=== PATIENT | female | born 1955 | race Caucasian/White ===

== ENCOUNTER 2022-02-02 16:14 | Emergency (ER) | payer MEDICARE, SELFPAY ==
[2022-02-02 16:16] VITALS: BP 131/69; PULSE 81; RESP 17; TEMP 37; O2SAT 98
--- NOTE | 2022-02-02 16:38 | ED.EAR ---
HPI - Ear Problem General Chief complaint: Ear Stated complaint: left ear complaint Time Seen by Provider: 02/02/22 16:31 History of Present Illness HPI Narrative: pt shooting guns today and doign fine then when got in car noticed couldn't hear out of left ear and felt a fluttering in left ear no ringing and wore her normal ear protection says lots of sinus issues lately no preivous issues/f/uri/dental or other c/o Related Data Allergies Allergy/AdvReac Type Severity Reaction Status Date / Time codeine Allergy Mild N/V Unverified 09/17/17 01:16 cortisone Allergy Mild GI UPSET Verified 09/17/17 01:16 hydrocodone Allergy Unknown GI UPSET Verified 09/17/17 01:16 Review of Systems Review of Systems: CONSTITUTIONAL: Denies fever, chills, or sweats. EYES: Denies visual changes, redness, or discharge. ENT: Denies rhinorrhea, congestion, sore throat, or otalgia. left hearing loss/fluttering CARDIOVASCULAR: Denies chest pain, palpitations, or edema. RESPIRATORY: Denies cough or dyspnea. GASTROINTESTINAL: Denies abdominal pain, nausea, vomiting, or diarrhea. GENITOURINARY: Denies dysuria or hematuria. SKIN: Denies rash or itching. MUSCULOSKELETAL: Denies back pain, joint pain, or myalgia. NEUROLOGIC: Denies headache, numbness, or weakness. PSYCHIATRIC: Denies anxiety or depression. PMFSH Social History Social History Smoking status: Never smoker Alcohol intake: current Exam Narrative: APPEARANCE: Well appearing, no pain in distress, well-nourished. Head normocephalic atraumtaic. EYES: PERRLA/EOMI, conjunctivae very clear. NOSE: Normal no drainage EARS:TMS clear Cathleen Sheets, with good light reflex. has fluid behind left tm, right has wax obsuring most of it and left canal dried blood at 3o'clock position pt uses qtips to clean ears but hasnt' today THROAT: Pharynx clear, no exudate. NECK: Supple. No adenopathy, no masses. RESPIRATORY: Airway patent, CARDIOVASCULAR: ABDOMINAL: MUSCULOSKELETAl: Moves all extremities. Strenght/ROM intact, No edema, No calf tenderness. NEURO: Alert. Cranial nerves II through XII intact. Good gait. Good coordination SKIN:: Warm, dry. Normal Color PSYCHIATRIC: Normal affect/mood, normal interaction with parents. Course Vital Signs Vital signs: Vital Signs Temperature 37.0 C 02/02/22 16:16 Pulse Rate 81 02/02/22 16:16 Respiratory Rate 17 02/02/22 16:16 Blood Pressure 131/69 02/02/22 16:16 Pulse Oximetry 98 02/02/22 16:16 Temperature 37.0 C 02/02/22 16:16 Pulse Rate 81 02/02/22 16:16 Respiratory Rate 17 02/02/22 16:16 Blood Pressure 131/69 02/02/22 16:16 Pulse Oximetry 98 02/02/22 16:16 Medical Decision Making Differential Diagnosis Differential Diagnosis: infection, obstruction, secondary to shooting Vital Signs Vital Signs: Vital Signs Temperature 37.0 C 02/02/22 16:16 Pulse Rate 81 02/02/22 16:16 Respiratory Rate 17 02/02/22 16:16 Blood Pressure 131/69 02/02/22 16:16 Pulse Oximetry 98 02/02/22 16:16 Temperature 37.0 C 02/02/22 16:16 Pulse Rate 81 02/02/22 16:16 Respiratory Rate 17 02/02/22 16:16 Blood Pressure 131/69 02/02/22 16:16 Pulse Oximetry 98 02/02/22 16:16 Discharge Plan Discharge Clinical Impression: Otitis externa, Acute hearing loss of left ear Patient Disposition: Home, Self-Care Condition: Stable Instructions: Antibiotic Form Additional Instructions: use claritin, flonase and cortisporin otic and no qtips to ear and no shooting until full hearing evaluation, call your doc for further care friday, return if new issues Prescriptions: New fluticasone propionate [Flonase Allergy Relief] 50 mcg/actuation spray,suspension 2 spray intranasal DAILY Qty: 16 RF: 0 loratadine [Claritin] 10 mg tablet 10 mg PO DAILY PRN (Reason: sinus symptoms) Qty: 30 RF: 0 Cortisporin-TC 3.3-3-10-0.5 mg/mL drops,suspension 4 drp LEFT EAR TID Qty: 10 RF: 0 No Action alendronate 70
== END 2022-02-02 17:15 | disposition home or self-care (01) ==
LOC: ANHED 16:56
PROVIDERS: Emergency Provider Emergency Medicine; PCP Family Medicine Adolescent Medicine
DX: H91.92 Unspecified hearing loss, left ear (principal); H60.92 Unspecified otitis externa, left ear
CPT/HCPCS: 99283

== ENCOUNTER 2023-08-04 14:47 | Emergency (ER) | payer MEDICARE, SELFPAY ==
--- NOTE | ~2023-08-04 | XR_ITS ---
EXAMINATION: XR chest 2V DATE: 08/04/2023 15:18 INDICATION: Cough. TECHNIQUE: Frontal and lateral views of the chest were obtained. COMPARISON: Chest 2 views 08/14/2016 FINDINGS: There is mild scarring at the lung apices. No pleural effusion or pneumothorax. The heart s ize is normal. There is a chronic compression fracture of L1. IMPRESSION: 1. Stable mild scarring at the lung apices. Reviewed, dictated and finalized at location A. SE CONSULTANT
[2023-08-04 15:01] VITALS: BP 137/80; PULSE 133; RESP 18; TEMP 36.8; O2SAT 100
--- NOTE | 2023-08-04 15:04 | ECG_ITS ---
Measurements Intervals [place] Rate: 123 P: 53 [place]: 153 QRS: 42 QRSD: 72 T: 47 QT: 306 QTc: 438 Interpretive Statements SINUS TACHYCARDIA NONSPECIFIC ST & T-WAVE ABNORMALITY- ANT/INF LEADS ABNORMAL ECG NO PREVIOUS ECG AVAILABLE FOR COMPARISON Electronically Signed On 08-04-2023 16:51:15 GROUP HOME PARAPROFESSIONAL by Adilson Maki D.O.
--- NOTE | 2023-08-04 15:08 | ED.GENADULT ---
HPI - General Adult General Chief complaint: Upper Respiratory Infection <Dale Liao PA-C - Last Filed: 08/04/23 15:11> Stated complaint: cough, chills <Dale Liao PA-C - Last Filed: 08/04/23 15:11> Time Seen by Provider: 08/04/23 15:08 <Dale Liao PA-C - Last Filed: 08/04/23 15:11> Source: patient <FLEX Cobian Last Filed: 08/04/23 15:11> Mode of arrival: ambulatory <Dale Liao PA-C - Last Filed: 08/04/23 15:11> Limitations: no limitations <FLEX Cobian Last Filed: 08/04/23 15:11> History of Present Illness HPI narrative: This is a 67-year-old female who presents to the ED with chief complaint of cough, congestion and chills for the past 24 to 48 hours. Reports last night she started feeling unwell and took a negative COVID test today at home. States that her son recently had COVID. She reports headache and a dry cough. She also reports that she checked 130s. States she feels short of breath. Denies fevers, abdominal pain, nausea, vomiting, chest pain, LOC, leg swelling, palpitations. <Dale Liao PA-C - Last Filed: 08/04/23 15:11> Related Data Allergies/adverse reactions: Allergies Allergy/AdvReac Type Severity Reaction Status Date / Time codeine Allergy Mild N/V Verified 08/04/23 16:40 cortisone Allergy Mild GI UPSET Verified 08/04/23 16:40 hydrocodone Allergy Unknown GI UPSET Verified 08/04/23 16:40 <Dale Liao PA-C - Last Filed: 08/04/23 15:11> Review of Systems Review of Systems: All systems as dictated in HPI <Dale Lioa PA-C - Last Filed: 08/04/23 15:11> [facility] Surgical History Surgical History: Surgical History (Updated 07/23/22 @ 07:53 by Waqar Silverio MD) History of carpal tunnel surgery (2012) Hx of cholecystectomy (2017) <Dale Liao PA-C - Last Filed: 08/04/23 15:11> Family History Family History: Family History (Updated 07/19/22 @ 11:56 by Alvin Esparza MA) Father Heart problem Mother Lung cancer <Dale Liao PA-C - Last Filed: 08/04/23 15:11> Social History Social History: Social History Smoking status: Never smoker Alcohol intake: current <Dale Liao PA-C - Last Filed: 08/04/23 15:11> Exam Narrative: GENERAL: Well-appearing, well-nourished, and in no acute distress. HEAD: Normocephalic, atraumatic. EYES: PERRLA and EOMI. ENT: Nares clear, no rhinorrhea or epistaxis. Mucous membranes moist. Oropharynx without tonsillar hypertrophy exudate or other lesions. NECK: Supple. No adenopathy or masses. CHEST: No respiratory distress. Clear to auscultation. No wheezes rales or rhonchi HEART: Tachycardic rate in the 130s. Regular. No murmur heard. Normal peripheral pulses. ABDOMEN: Soft, nontender, nondistended, normal active bowel sounds. MSK: Normal range of motion. No edema. SKIN: Warm, dry, no rash. NEURO: Alert and oriented x3. No focal deficits. PSYCH: Normal mood and affect. <Dale Liao PA-C - Last Filed: 08/04/23 15:11> Course Course Emergency Course: Mildly improved with fluids. Heart rate improved. Discharge with Paxlovid as patient is nonvaccinated. <Declan Salter MD - Last Filed: 08/04/23 18:47> Vital Signs Vital signs: Vital Signs Temperature 98.2 F 08/04/23 15:01 Pulse Rate 133 H 08/04/23 15:01 Respiratory Rate 18 08/04/23 15:01 Blood Pressure 137/80 08/04/23 15:01 Pulse Oximetry 100 08/04/23 15:01 Temperature 98.2 F 08/04/23 15:01 Pulse Rate 109 H 08/04/23 18:35 Respiratory Rate 19 08/04/23 18:35 Blood Pressure 102/76 08/04/23 18:35 Pulse Oximetry 99 08/04/23 18:35 Oxygen Delivery Room Air 08/04/23 16:20 <Dale Liao PA-C - Last Filed: 08/04/23 15:11> Vital Signs Temperature 98.2 F 08/04/23 15:01 Pulse Rate 133 H 08/04/23 15:01 Respiratory Rate 18 08/04/23 15:01 Blood Pressure 137/80 08/04/23 15:01 Pulse Oximetry 100
[2023-08-04 15:20] LABS: Basophils Absolute Auto 0.1 K/mm3 (0.0-0.1); Basophils Percent Auto 0.5 % (0.2-1.2); Eosinophils Percent Auto 0.2 % (0-4.4); Immature Granulocyte Absolute 0.05 K/mm3 (0.00-0.031); Immature Granulocyte Percent A 0.5 % (0-0.5); Lymphocytes Absolute Auto 0.41 K/mm3 (0.9-3.2); Lymphocytes Percent Auto 4.3 % (18.3-44.2); Mean Corpuscular HGB Conc 32.5 g/dl (32-36); Mean Corpuscular Hemoglobin 28.3 pg (26-34); Mean Platelet Volume 8.4 fl (7.4-10.4); Monocytes Absolute Auto 0.9 K/mm3 (0.1-0.6); Monocytes Percent Auto 9.6 % (2.6-8.5); Neutrophils Absolute Auto 8.1 K/mm3 (1.3-6.7); Neutrophils Percent Auto 84.9 % (45.5-73.1); Platelet Count Result 385 k/mm3 (150-375); Red Cell Distribution Width 14.1 % (11.5-14.5); White Blood Count 9.6 K/mm3 (4.5-10.0)
[2023-08-04 15:29] LABS: Alanine Aminotransferase 48 U/L (6-35); Albumin Level 4.3 g/dL (3.5-5.1); Alkaline Phosphatase 127 U/L (38-126); Anion Gap 13 mmol/L (8-16); Aspartate Amino Transferase 43 U/L (14-36); Bilirubin,Total 0.6 mg/dL (0.2-1.3); Blood Urea Nitrogen 7 mg/dL (7-17); Carbon Dioxide 22 mmol/L (22-30); Chloride 100 mmol/L (98-107); Estimated CRCL calculation 65 ml/min; Estimated Glomerular Filt Rate > 60; Glucose 115 mg/dL (65-110); Potassium 3.8 mmol/L (3.4-5.0); Sodium 135 mmol/L (137-145)
[2023-08-04 15:56] LABS: Influenza A QL RT-PCR Negative (Negative); Influenza B QL RT-PCR Negative (Negative); RSV RNA, RT-PCR Negative (Negative); SARS-CoV-2 RNA PCR Positive (Negative)
[2023-08-04 16:20] VITALS: O2SAT 100
[2023-08-04 16:23] VITALS: BP 146/89; PULSE 122; RESP 19; O2SAT 100
[2023-08-04 16:37] VITALS: BP 122/66; PULSE 117; RESP 18; O2SAT 100
[2023-08-04] MEDS: SODIUM CHLORIDE 0.9% IV 1,000 ML 999 ML IV CONT (16:38)
[2023-08-04] MEDS: KETOROLAC 30 MG/ML VIAL (*BKC) IV PUSH (16:39)
[2023-08-04 17:44] VITALS: BP 114/68; PULSE 107; RESP 18; O2SAT 100
[2023-08-04 18:35] VITALS: BP 102/76; PULSE 109; RESP 19; O2SAT 99
== END 2023-08-04 19:05 | disposition home or self-care (01) ==
PROVIDERS: Physician Assistant; Emergency Provider Emergency Medicine; PCP Family Medicine Adolescent Medicine
DX: U07.1 COVID-19 (principal); Z90.49 Acquired absence of other specified parts of digestive tract; R00.0 Tachycardia, unspecified; R94.31 Abnormal electrocardiogram [ECG] [EKG]
CPT/HCPCS: 36415; 71046; 80053; 85025; 87637; 93005; 96361; 96374; 99284; J1885; J7030

== ENCOUNTER 2023-11-05 07:33 | Outpatient (CLI) | payer MEDICARE, SELFPAY ==
--- NOTE | ~2023-11-05 | DEXA_ITS ---
Bone Density Report Name: VON VITALE Age: 67 Sex: Female Ethnicity: White Date of : 1955 Indication: postmenopausal; screening for osteoporosis; parental hip fracture; height loss; prior fracture; Referring Provider: ROMY BLANKENSHIP Study: Bone densitometry was performed. Exam Date: November 05, 2023 Accession number: [id number] Bone Density: Region BMD T-score Z-score Classification AP Spine(L1-L4) 0.825 -2.0 -0.1 Osteopenia Femoral Neck (Left) 0.490 -3.2 -1.6 Osteoporosis Total Hip (Left) 0.636 -2.5 -1.2 Osteoporosis Femoral Neck (Right) 0.501 -3.1 -1.5 Osteoporosis Total Hip (Right) 0.659 -2.3 -1.0 Osteopenia Total Hip Mean 0.647 -2.4 -1.1 Osteopenia World Health Organization criteria for BMD impression classify patients as: Normal (T-score at or above -1.0), Osteopenia (T-score between -1.0 and -2.5), or Osteoporosis (T-score at or below -2.5). 10-year Fracture Risk: FRAX not reported because: Some T-score for Spine Total or Hip Total or Femoral Neck at or below -2.5 Prior hip or vertebral fracture Treated for osteoporosis Clinical Information Provided by Patient: Have had a previous hip or vertebral fracture Has had a low trauma fracture Parent has had a hip fracture Is being treated for osteoporosis Patient maximum height was 71.5 Menopause Age: 51 No regular weight bearing exercise Does not regularly consume dairy products Drinks caffeinated beverages Onset of menses at age 14 Number of children 1 Impression: The patient has established osteoporosis, based on the Left Femoral Neck T-score and the existence of a prior fracture. The patient has risk factors, including: parental hip fracture, previous fracture. Discussion: It is important to ask patients whether they are taking their medications and to encourage continued and appropriate compliance with their osteoporosis therapies to reduce fracture risk. It is also important to review their risk factors and encourage appropriate calcium and vitamin D intakes, exercise, fall prevention and other lifestyle measures. Follow-Up: Consider a repeat BMD and Vertebral Fracture Assessment (VFA) exam in 2 years or sooner if medically necessary, to reassess this patient's status. Reported by: [facility] on 11/05/2023 7:55:00 AM. Reviewed, dictated and finalized at location A.
== END 2023-11-05 07:34 | disposition home or self-care (01) ==
LOC: ANHIMG 07:37
PROVIDERS: PCP Family Medicine Adolescent Medicine; Visit Provider Family Medicine Adolescent Medicine
DX: M81.0 Age-related osteoporosis without current pathological fracture (principal); Z78.0 Asymptomatic menopausal state
CPT/HCPCS: 77080

== ENCOUNTER 2025-05-30 11:56 | Outpatient (CLI) | payer MEDICARE, SELFPAY ==
--- NOTE | ~2025-05-30 | US_ITS ---
EXAMINATION: US soft tissue UE RT DATE: 05/30/2025 12:45 INDICATION: Lump at the lateral right upper arm TECHNIQUE: Multiple grayscale and Doppler ultrasound images of the region of concern at the lateral right upper arm were obtained. COMPARISON: None FINDINGS/IMPRESSION: Normal appearance to the subcutaneous fat and underlying musculature at the region of concern. No abnormal masses or fluid collections identified. Reviewed, dictated and finalized at location A.
--- OUTSIDE RECORDS SUMMARY | 2025-05-30 12:07 | XMS_ITS | Clinical Summary ---
Author Organization [facility] Address [address] [place] [id number] Care Team Providers Care Bench Assembly Inspector Name Role Phone Unavailable Primary Care Provider Unavailabl e Social History Tobacco Use Types Packs/Day Years Used Date Smoking Tobacco: Never Assessed Comments Unknown Sex and Gender Information Value Date Recorded Sex Assigned at Not on file Legal Sex Female 9:28 PM CDT Gender Identity Not on file Sexual Orientation Not on file Plan of Treatment Health Maintenance Due Date Last Done Comments Colorectal Cancer Screening Colonoscopy (10 Years) 1955 Hepatitis C 1974 DTaP, Tdap and Td Vaccines ( 1 - Tdap) 1975 Mammogram Screening 1996 Pneumococcal Vaccine: 50+ Ye ars (1 of 1 - PCV) 2006 Zoster Vaccines (1 of 2) 2006 Dexa Scan (General) 2021 COVID-19 Vaccine ( - 2023-2 5 season) 2025 RSV Immunization or 60+ Years (1 - 1-dose 75+ series) 2031 Meningococcal B Vaccine Aged Out No l onger eligible based on patient's age to complete this topic Meningococcal Vaccine Aged Out No isacc darren eligible based on patient's age to complete this topic RSV Immunizations Under 20 Months Aged Out No longer eligible based on patient's age to complete this topic
--- OUTSIDE RECORDS SUMMARY | 2025-05-30 12:07 | XMS_ITS | Clinical Summary ---
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 Gender Identity Not on file Sexual Orientation Not on file Plan of Treatment Health Maintenance Due Date Last Done Comments Hepatitis C Virus (HCV) Screening 1955 TdaP Immunization 1955 Cologuard 2001 Colonoscopy 2001 Colorectal Cancer Screening 2001 Immunochemical Fecal Occult Blood 2001 Pneumococcal Immunization (5 0+ years) (1 of 1 - PCV) 2006 Zoster Immunization (1 of 2) 2006 SARS-COV-2 Immunization ( - 2023- season) 2024 Influenza Immunization (#1) 2025 Respiratory Syncytial Virus (RSV) Immunization (Adult) (1 - 1-dose 75+ series) 2031 Hepatitis B Immunization Aged Out No longer eligible based on patient's age to complete this topic Human Papillomavirus (HPV) Immunization Aged Out No longer eligible b ased on patient's age to complete this topic Meningococcal Immunization (ACWY) Aged Out No longer eligible based on patient's age to complete this topic Rotavirus Immunization Aged Out No lo nger eligible based on patient's age to complete this topic
== END 2025-05-30 11:57 | disposition home or self-care (01) ==
PROVIDERS: PCP Family Medicine; Visit Provider Family Medicine
DX: R22.31 Localized swelling, mass and lump, right upper limb (principal)
CPT/HCPCS: 76882

== ENCOUNTER 2025-07-15 09:06 | Outpatient (CLI) | payer MEDICARE, SELFPAY ==
[2025-07-15 10:47] LABS: Hemoglobin A1C 5.7 % (<5.7)
[2025-07-15 11:02] LABS: Alanine Aminotransferase 112 U/L (6-35); Albumin Level 4.2 g/dL (3.5-5.1); Alkaline Phosphatase 123 U/L (38-126); Anion Gap 8 mmol/L (4-12); Aspartate Amino Transferase 49 U/L (14-36); Bilirubin,Total 0.8 mg/dL (0.2-1.3); Blood Urea Nitrogen 10 mg/dL (7-17); Calcium 9.1 mg/dL (8.4-10.2); Carbon Dioxide 27 mmol/L (22-30); Chloride 102 mmol/L (98-107); Cholesterol 266 mg/dL (0-200); Estimated Glomerular Filt Rate > 60; Glucose 102 mg/dL (65-110); HDL Direct 57 mg/dL; Potassium 4.3 mmol/L (3.4-5.0); Sodium 137 mmol/L (137-145); Total Protein 7.4 g/dL (6.3-8.2); Triglycerides 89 mg/dL (<150)
== END 2025-07-15 09:07 | disposition home or self-care (01) ==
LOC: ANHLAB 09:07
PROVIDERS: PCP Family Medicine; Visit Provider Family Medicine
DX: Z13.1 Encounter for screening for diabetes mellitus (principal); Z13.6 Encounter for screening for cardiovascular disorders
CPT/HCPCS: 36415; 80053; 80061; 83036

== ENCOUNTER 2025-08-09 08:06 | Outpatient (CLI) | payer MEDICARE, SELFPAY ==
--- NOTE | ~2025-08-09 | US_ITS ---
ULTRASOUND ABDOMEN LIMITED (RIGHT UPPER QUADRANT) Clinical History: R79.89 - Other specified abnormal findings of blood chemi... Comparison: CT abdomen pelvis 09/17/2017 Technique: Right upper quadrant sonography Findings: Liver: Normal size. Normal echotexture. No intrahepatic biliary ductal dilatation. Normal hepatopedal flow main portal vein. Common Duct: 7 mm. Gallbladder: Removed. Pancreas: Obscured by bowel gas. IMPRESSION: 1. No acute findings. Reviewed, dictated and finalized at location R. PHONE ORDER DISPATCHER IMPRESSION: 1. No acute findings.
--- OUTSIDE RECORDS SUMMARY | 2025-08-09 09:30 | XMS_ITS | Clinical Summary ---
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
== END 2025-08-09 08:07 | disposition home or self-care (01) ==
PROVIDERS: PCP Family Medicine; Visit Provider Family Medicine
DX: R79.89 Other specified abnormal findings of blood chemistry (principal)
CPT/HCPCS: 76705

== ENCOUNTER 2025-08-15 09:07 | Outpatient (CLI) | payer MEDICARE, SELFPAY ==
--- OUTSIDE RECORDS SUMMARY | 2025-08-15 09:54 | XMS_ITS | Clinical Summary ---
Author Organization [facility] Address [address] [place] [id number] Care Team Providers Care Sea Kayaking Guide Name Role Phone Unavailable Primary Care Provider [...] Scan (General) 2021 COVID-19 Vaccine ( - 2024-2 6 season) 2025 Influenza Adult (#1) 2025 RSV Immunization or 60+ Years (1 - 1-dose 75+ series) 2031 Hepatitis A Vaccines Aged Out No long er eligible based on patient's age to complete this topic Meningococcal B Vaccine Aged Out No l onger eligible based on patient's age to complete this topic Meningococcal Vaccine Aged Out No isacc darren eligible based on patient's age to complete this topic RSV Immunizations Under 20 Months Aged Out No longer eligible based on patient's age to complete this topic
--- OUTSIDE RECORDS SUMMARY | 2025-08-15 09:54 | XMS_ITS | Clinical Summary ---
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
--- OUTSIDE RECORDS SUMMARY | 2025-08-15 09:54 | XMS_ITS | Encounter Summary ---
Author Organization [facility] Address [address] [place] [address] Care Team Providers Care Mold Construction Supervisor Name Role Phone Unavailable Primary Care Provider Unavailabl e Encounter Details Date Type Department Care Team (Latest Contact Info) Description 12/21/1998 Outpatient Historical [facility]- Daniel Chávez Deven [address] [place] [address] Tato Merida, DO [address] [facility] [place] [id number] Acute sinusitis, unspecified (Primary Dx) Social History Tobacco Use Types Packs/Day Years Used Date Smoking Tobacco: Never Assessed Comments Unknown Sex and Gender Information Value Date Recorded Sex Assigned at Not on file Legal Sex Female 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
--- OUTSIDE RECORDS SUMMARY | 2025-08-15 09:54 | XMS_ITS | Clinical Summary ---
Author Organization [facility] Address [address] 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
[2025-08-15 10:28] LABS: Alanine Aminotransferase 17 U/L (6-35); Albumin Level 4.0 g/dL (3.5-5.1); Alkaline Phosphatase 87 U/L (38-126); Anion Gap 6 mmol/L (4-12); Aspartate Amino Transferase 23 U/L (14-36); Bilirubin,Total 0.6 mg/dL (0.2-1.3); Blood Urea Nitrogen 9 mg/dL (7-17); Calcium 8.9 mg/dL (8.4-10.2); Carbon Dioxide 26 mmol/L (22-30); Chloride 103 mmol/L (98-107); Estimated Glomerular Filt Rate > 60; Glucose 100 mg/dL (65-110); Potassium 4.0 mmol/L (3.4-5.0); Sodium 135 mmol/L (137-145); Total Protein 7.1 g/dL (6.3-8.2)
[2025-08-15 10:57] LABS: Hepatitis B Surface Antigen Negative (Negative)
[2025-08-15 11:03] LABS: HAV RESULT Negative (Negative); Hepatitis B Core IgM Result Negative (Negative)
== END 2025-08-15 09:08 | disposition home or self-care (01) ==
PROVIDERS: PCP Family Medicine; Visit Provider Family Medicine
DX: R74.01 Elevation of levels of liver transaminase levels (principal); R79.89 Other specified abnormal findings of blood chemistry
CPT/HCPCS: 36415; 80053; 80074

== ENCOUNTER 2025-08-30 13:19 | Outpatient (CLI) | payer MEDICARE, SELFPAY ==
--- NOTE | ~2025-08-30 | MR_ITS ---
EXAM/PROCEDURE: MR shoulder RT wo con HISTORY: M75.81 - Other shoulder lesions, right shoulder COMPARISON: Plain films from June 23, 2025 TECHNIQUE: Noncontrast enhanced multiplanar right shoulder MRI. FINDINGS: No fracture subluxation or dislocation. Moderately extensive cartilaginous thinning, small early subchondral cystic changes at the greater tuberosity, and mild to moderate arthrosis at the AC joint noted. No definite labral tear on this nonarthrographic series. Trace joint effusion. Hyperintense T2-weighted or edematous changes present in the distal fibers of the supraspinatus and at the myotendinous junction; there is also slight contour irregularity along both the bursal and articulating margins as seen on images 8, 9 and 10 of series 7. No discrete full-thickness tear seen. The remainder the rotator cuff appears normal. The long head biceps tendon is intact within the bicipital groove with superior labral attachment partially seen appears intact. Spinoglenoid recess and suprascapular notch regions appear normal. IMPRESSION: 1. Partial-thickness tears involving the supraspinatus tendon; no full-thickness tear seen. There is also probable strain involving the distal fibers of the supraspinatus muscle. 2. Moderately advanced degenerative changes about the right shoulder as well. Reviewed, dictated and finalized at location A. OGRAPH OPERATOR IMPRESSION: 1. Partial-thickness tears involving the supraspinatus tendon; no full-thicknes s tear seen. There is also probable strain involving the distal fibers of the s upraspinatus muscle. 2. Moderately advanced degenerative changes about the right shoulder as well.
== END 2025-08-30 13:20 | disposition home or self-care (01) ==
LOC: MICIMG 13:20
PROVIDERS: PCP Family Medicine; Visit Provider Orthopaedic Surgery
DX: S46.821A Laceration of other muscles, fascia and tendons at shoulder and upper arm level, right arm, initial encounter (principal); S46.811A Strain of other muscles, fascia and tendons at shoulder and upper arm level, right arm, initial encounter; X58.XXXA Exposure to other specified factors, initial encounter; M19.012 Primary osteoarthritis, left shoulder; M75.81 Other shoulder lesions, right shoulder
CPT/HCPCS: 73221